=== PATIENT | female | born 1970 | race African-American/Black ===

== ENCOUNTER → 2016-06-27 | Outpatient (CLI) | payer OTHER ==
[~2016-06-27] MED LIST: ECOT81TA2 PO; ENAL5TAB PO; FERR324T4 PO; FURO1TAB93 PO; KLOR20TA6 PO; LEVO.025 PO; METO25 PO; METO25TA3 PO; POTA-163 PO
--- NOTE | 2016-06-27 19:04 | EC ---
Study Study Date:06/27/2016 STUDY CONCLUSIONS SUMMARY - Left ventricle: The cavity size was mildly dilated. Wall thickness was normal. Systolic function was moderately reduced. The estimated ejection fraction was 40%, in the range of 35% to 40%. Diffuse hypokinesis. - Aortic valve: Valve area: 2.71cm^2(VTI). Valve area: 2.49cm^2 (Vmax). If LV function is below 40, please consider prescribing an ACEI or ARB or document rationale for non-use. PROCEDURE DATA STUDY STATUS: Elective. Procedure: Transthoracic echocardiography. Image quality was suboptimal. Scanning was performed from the parasternal, apical, and subcostal acoustic windows. Study completion: The patient tolerated the procedure well. Transthoracic echocardiography. M-mode, complete 2D, complete spectral Doppler, and color Doppler. Height: Height: 65in. Weight: Weight: 209.6lb. Body mass index: BMI: 34.9kg/m^2. Body surface area: BSA: 2.02m^2. Patient status: Inpatient. CARDIAC ANATOMY LEFT VENTRICLE: The cavity size was mildly dilated. Wall thickness was normal. Systolic function was moderately reduced. The estimated ejection fraction was 40%, in the range of 35% to 40%. Diffuse hypokinesis. AORTIC VALVE: Trileaflet; normal thickness leaflets. Doppler: Transvalvular velocity was within the normal range. There was no stenosis. No regurgitation. Valve area: 2.71cm^2(VTI). Indexed valve area: 1.34cm^2/m^2 (VTI). Valve area: 2.49cm^2 (Vmax). Indexed valve area: 1.23cm^2/m^2 (Vmax). Mean gradient: 2mm Hg (S). AORTA: Aortic root: The aortic root was normal in size. MITRAL VALVE: Structurally normal valve. Doppler: Transvalvular velocity was within the normal range. There was no evidence for stenosis. Trace regurgitation. LEFT ATRIUM: The atrium was normal in size. RIGHT VENTRICLE: The cavity size was normal. Wall thickness was normal. PULMONIC VALVE: Doppler: Transvalvular velocity was within the normal range. There was no evidence for stenosis. No regurgitation. TRICUSPID VALVE: Structurally normal valve. Doppler: Transvalvular velocity was within the normal range. Trace to mild regurgitation. PULMONARY ARTERY: Systolic pressure was within the normal range. RIGHT ATRIUM: The atrium was normal in size. PERICARDIUM: There was no pericardial effusion. Patient weight: 209.6lb _Ejection fraction:_ 65-75% _Fractional shortening:_ 32% up to 5Kg 5-11.5Kg 11.6-22.9Kg 23-45Kg 45-57Kg Aortic Root 7-13 <17 13-22 17-27 17-27 LA diam 6-13 <23 24-38 33-47 37-40 RVID 10-17 7-15 7-15 7-18 8-17 LVIDd 12-22 <32 24-38 33-47 37-40 LVPW 2-4 3-6 5-7 6-8 7-8 IVS 2-4 3-6 5-7 6-8 7-8 BASIC MEASUREMENTS ADULT NORMAL Left ventricle LV internal dimension, ED, chordal *61.2 mm 43-52 level, PLAX LV internal dimension, ES, chordal *51.3 mm 23-38 level, PLAX Fractional shortening, chordal level, *16 % >29 PLAX LV posterior wall thickness, ED 10.2 mm IVS/LVPW ratio, ED 1 <1.3 Ventricular septum Septal thickness, ED 10.2 mm Aortic valve Leaflet separation 19 mm 15-26 Aorta Root diameter, ED 32 mm Left atrium Anterior-posterior dimension 38 mm Anterior-posterior dimension index 1.88 cm/m^2 <2.2 BASIC MEASUREMENTS ADULT NORMAL Aortic valve Leaflet separation 19 mm 15-26 DOPPLER MEASUREMENTS ADULT NORMAL Aortic valve Peak velocity, S 95.1 cm/s Mean velocity, S 69.5 cm/s VTI, S 16.7 cm Mean gradient, S 2 mm Hg Valve area, VTI 2.71 cm^2 Valve area index, VTI 1.34 cm^2/m^2 Valve area, Vmax 2.49 cm^2 Valve area index, Vmax 1.23 cm^2/m^2 Mitral valve Peak E-wave velocity 38.5 cm/s Peak A-wave velocity 79 cm/s Peak E/A ratio 0.5 Pulmonic valve Peak velocity, S 40.5 cm/s LEGEND: Mean values are shown as u=mean value. Asterisk (*) pineda values outside specified normal range. Prepared and signed by Olegario Snow [id number]
== END ==
LOC: HECH 08:58
PROVIDERS: ATTEND Family Medicine
DX: I50.9 Heart failure, unspecified (principal); K12.2 Cellulitis and abscess of mouth
CPT/HCPCS: 93306